=== PATIENT | female | born 1985 | race Caucasian/White ===

== ENCOUNTER 2016-11-30 15:34 | Emergency (ER) | payer MEDICAID ==
[2016-06-28 10:10] VITALS: BMI 29.9
[~2016-11-30 15:34] MED LIST: ADDERALL 10 MG10 MG PO; ADDERALL 20 MG20 M1 PO; DIFLUCAN150 MG PO; GAS-X80 MG PO; IBUPROFEN600 MG PO; MOTRIN600 MG PO; PERCOCET 5-3251 TAB PO; PERCOCET 5/3251 TA1 PO; PROMETRIUM200 MG PO; VICOPROFEN 7.5/1 TAB PO
[2016-11-30 16:40] LABS: BASOPHILS 0.6 % (0-2); EOSINOPHILS 2.1 % (0-7); HEMATOCRIT 41.5 % (36.0-48.0); HEMOGLOBIN 13.9 g/dL (12-16); IMMATURE GRANULOCYTES 0.1 % (0-5); LYMPHOCYTES 36.3 % (15-50); MCH 30.2 pg (26.0-34.0); MCHC 33.5 g/dL (31.0-37.0); MCV 90.2 fL (80.0-100.0); MEAN PLATELET VOLUME 10.9 fL (7.4-10.4); NEUTROPHILS 50.9 % (40-80); PLATELET COUNT 243 10x3/uL (130-400); RDW 12.5 % (11.5-14.5); WBC 7.2 10x3/uL (4.8-10.8)
[2016-11-30 17:05] LABS: ALBUMIN 4.1 g/dL (3.4-5.0); ALKALINE PHOSPHATASE 79 U/L (46-116); ALT (SGPT) 40 U/L (10-68); BILIRUBIN - TOTAL 0.27 mg/dL (0.2-1.3); CALC OSMOLALITY 277 mosm/kg (275-300); CALCIUM 9.6 mg/dL (8.5-10.1); CARBON DIOXIDE 27.9 mmol/L (21.0-32.0); CHLORIDE - SERUM 104 mmol/L (98-107); CREATININE - SERUM 0.8 mg/dL (0.6-1.3); GLUCOSE 86 mg/dL (74-106); POTASSIUM - SERUM 4.1 mmol/L (3.5-5.1); PROTEIN - SERUM 7.7 g/dL (6.4-8.2); SODIUM 140 mmol/L (136-145); UREA NITROGEN 12 mg/dL (7-18); eGFR NON AFRICAN AMERICAN 90 mL/min (90-120)
== END 2016-11-30 18:27 | disposition left against medical advice (07) ==
LOC: D.ER 15:34
PROVIDERS: Emergency Medicine
DX: R60.0 Localized edema (principal)

== ENCOUNTER 2016-12-08 09:55 | Emergency (ER) | payer MEDICAID ==
[2016-06-28 10:10] VITALS: BMI 29.9
[2016-12-08 10:32] LABS: EOSINOPHILS 2.3 % (0-7); HEMATOCRIT 41.1 % (36.0-48.0); IMMATURE GRANULOCYTES 0.2 % (0-5); LYMPHOCYTES 38.8 % (15-50); MCH 30.2 pg (26.0-34.0); MCHC 34.1 g/dL (31.0-37.0); MCV 88.6 fL (80.0-100.0); MONOCYTES 11.2 % (2-11); NEUTROPHILS 46.5 % (40-80); PLATELET COUNT 232 10x3/uL (130-400); RBC 4.64 10x6/uL (4.00-5.40); RDW 12.3 % (11.5-14.5); WBC 5.3 10x3/uL (4.8-10.8)
[2016-12-08 11:06] LABS: ALBUMIN 4.1 g/dL (3.4-5.0); ALKALINE PHOSPHATASE 73 U/L (46-116); ALT (SGPT) 65 U/L (10-68); BILIRUBIN - TOTAL 0.53 mg/dL (0.2-1.3); CALC OSMOLALITY 279 mosm/kg (275-300); CALCIUM 9.4 mg/dL (8.5-10.1); CHLORIDE - SERUM 101 mmol/L (98-107); CREATININE - SERUM 0.8 mg/dL (0.6-1.3); GLUCOSE 91 mg/dL (74-106); POTASSIUM - SERUM 3.7 mmol/L (3.5-5.1); PROTEIN - SERUM 7.8 g/dL (6.4-8.2); SODIUM 140 mmol/L (136-145); UREA NITROGEN 14 mg/dL (7-18); eGFR NON AFRICAN AMERICAN 90 mL/min (90-120)
== END 2016-12-08 14:40 | disposition home or self-care (01) ==
LOC: D.ER 09:55
PROVIDERS: Emergency Medicine
DX: G43.909 Migraine, unspecified, not intractable, without status migrainosus (principal); I10 Essential (primary) hypertension; E87.6 Hypokalemia

== ENCOUNTER 2017-05-16 05:25 | Day surgery (SDC) | payer MEDICAID ==
[2017-05-11 14:59] LABS: HEMATOCRIT 41.8 % (36.0-48.0); MCHC 33.5 g/dL (31.0-37.0); MCV 89.7 fL (80.0-100.0); MEAN PLATELET VOLUME 11.8 fL (7.4-10.4); RBC 4.66 10x6/uL (4.00-5.40); RDW 12.7 % (11.5-14.5); WBC 7.1 10x3/uL (4.8-10.8)
[~2017-05-16 05:25] MED LIST changes: +ESTRACE2 MG PO; +ZANAFLEX4 MG PO
[2017-05-16 05:57] VITALS: BMI 33.5
--- NOTE | 2017-05-17 08:23 | OP ---
PATIENT NAME: TYLER FERRELL MEDICAL RECORD: [id number] :89 LOCATION:D.OPS ADMISSION DATE: SURGEON: ARMINDA SINGH MD DATE OF OPERATION: 05/16/2017 PREOPERATIVE DIAGNOSES: 1. Pelvic pain. 2. Dysuria. POSTOPERATIVE DIAGNOSES: 1. Pelvic pain. 2. Dysuria. 3. Interstitial cystitis. SURGEON: Arminda Singh MD PROCEDURES: 1. Exam under anesthesia 2. Cystoscopy with hydrodistention. ANESTHESIA: General. ANESTHESIOLOGIST: Dr. Nevarez. FINDINGS: Normal external female genitalia. The urethra is unremarkable. There is no exudate expressed from the periurethral glands and no fronds present at the UV junction. After hydrodistention bloody fluid is removed from the bladder and reestablishment reveals petechiae and glomerulations within the bladder without ulceration. Glomerulations and petechiae are present in 2 out of 4 quadrants. SPECIMEN: None. SPECIMEN DISPOSITION: None applicable. ESTIMATED BLOOD LOSS: Minimal FLUIDS: 1 liter of lactated Ringer's. URINE OUTPUT: Quantity sufficient void prior to the procedure. COMPLICATIONS: None. INDICATIONS: The patient is a 31-year-old female with history of endometriosis, status post hysterectomy and bilateral salpingo-oophorectomy and has also had a transvaginal mesh procedures for incontinence. The patient presents to the clinic with nocturia and dysuria without culture-proven infections. The patient is consented for exam under anesthesias and cystoscopy. DESCRIPTION OF PROCEDURE: After informed consent was assured, the patient was taken to the operating room where anesthetic was obtained without difficulty. The patient is now prepped and draped in usual sterile fashion. The patient has a 70-degree cystoscope inserted into the urethra after exam under anesthesia was performed. The periurethral glands are milked without expression of exudate. No forearms are present at the UV junction. The bladder was visualized. Both OPERATIVE REPORT [id number] TYLER FERRELL ureteral orifices are identified. The bladder is distended at 80 cm of water and then the distention media released. Towards the end of the release of the distention media, bloody efflux noted. Reestablishment of the cystoscopy reveals petechiae and glomerulations in 2 out of 4 quadrants. The distention media was again removed and 40,000 units of heparin and 10 cc of 1% lidocaine is now placed in the bladder. The sponge, lap, and needle counts correct times 2. The catheter was removed. The patient was taken down from the stirrups and sent to the recovery area in stable condition. TRANSINT:[id number] Voice Confirmation ID: [id number] DOCUMENT ID: [id number] ARMINDA SINGH MD at 0823 CC: [id number] DICTATION DATE: 05/16/17 08 CONSTRUCTION GRIP: 05/16/17 1130 [facility] [place] 05/16/17 [facility] [address] [place] [address]
== END 2017-05-16 09:30 | disposition home or self-care (01) ==
LOC: D.OPS 05:25 → D.PAN 07:30 → D.OPS 07:30
PROVIDERS: Anesthesiology
DX: R10.2 Pelvic and perineal pain (principal); N30.10 Interstitial cystitis (chronic) without hematuria; R30.0 Dysuria; Z01.812 Encounter for preprocedural laboratory examination